=== PATIENT | female | born 1980 | race Caucasian/White ===

== ENCOUNTER 2020-06-23 15:40 | Emergency (ER) | payer BC ==
[~2020-06-23] VITALS: Ht 157.5 cm; Wt 60.8 kg
[2020-06-23 15:42] VITALS: BP 142/100; Ht 157.5 cm; Wt 60.8 kg
== END 2020-06-23 16:36 | disposition home or self-care (01) ==
LOC: ED 15:40
DX: U07.1 COVID-19 (principal); J30.9 Allergic rhinitis, unspecified; R03.0 Elevated blood-pressure reading, without diagnosis of hypertension; Z76.0 Encounter for issue of repeat prescription